=== PATIENT | male | born 1965 | race Caucasian/White ===

== ENCOUNTER 2018-05-01 11:54 | Emergency (ER) | payer OTHER ==
[2018-05-01] MEDS: LIDOCAINE 1% (MDV) 10 ML INJ INJ (12:36)
[2018-05-01] MEDS: CEFTRIAXONE 1 GM INJ IM (12:36)
[2018-05-01] MEDS: DIPHTH/TET/ACEL PERTUSS (ADULT) 0.5 ML VIAL IM* (12:37)
== END 2018-05-01 12:55 | disposition home or self-care (01) ==
LOC: FTE 11:54
DX: L02.31 Cutaneous abscess of buttock (principal); L02.413 Cutaneous abscess of right upper limb; L02.414 Cutaneous abscess of left upper limb; I10 Essential (primary) hypertension; F17.210 Nicotine dependence, cigarettes, uncomplicated; Z23 Encounter for immunization; Z79.84 Long term (current) use of oral hypoglycemic drugs
CPT/HCPCS: 90471; 90715; 96372; 99284-25

== ENCOUNTER 2018-05-04 09:14 | Emergency (ER) | payer OTHER ==
[2018-05-04] MEDS: IBUPROFEN 800 MG TAB PO (09:58)
[2018-05-04] MEDS: LIDOCAINE 1% (MDV) 10 ML INJ INJ (10:00)
== END 2018-05-04 10:50 | disposition home or self-care (01) ==
LOC: FTE 09:14
DX: L02.411 Cutaneous abscess of right axilla (principal); E11.9 Type 2 diabetes mellitus without complications; I10 Essential (primary) hypertension; F17.210 Nicotine dependence, cigarettes, uncomplicated; Z79.84 Long term (current) use of oral hypoglycemic drugs
CPT/HCPCS: 10060; 99282-25

== ENCOUNTER → 2019-06-17 | Emergency (ER) | payer OTHER ==
[2019-06-17] MEDS: IBUPROFEN 600 MG TAB PO (19:37)
[2019-06-17] MEDS: TRIMETHOPRIM/SULFAMETHOX (DS) TAB PO (19:38)
[2019-06-17] MEDS: LIDOCAINE 1% (MDV) 20 ML INJ SC (19:39)
== END | disposition home or self-care (01) ==
LOC: FTE 18:51
DX: L02.01 Cutaneous abscess of face (principal); E11.9 Type 2 diabetes mellitus without complications; I10 Essential (primary) hypertension; F17.210 Nicotine dependence, cigarettes, uncomplicated; Z79.82 Long term (current) use of aspirin; Z79.84 Long term (current) use of oral hypoglycemic drugs
CPT/HCPCS: 10060; 99283-25